=== PATIENT | male | born 1970 | race Caucasian/White ===

== ENCOUNTER 2016-11-18 05:20 | Emergency (ER) | payer SELFPAY ==
[~2016-11-18] VITALS: Ht 167.6 cm; Wt 120.2 kg
--- NOTE | 2016-11-18 05:34 | PHYS DOC ---
Past Medical History Past Medical History: No Pertinent History Past Surgical History: Tonsillectomy Alcohol Use: Rarely Drug Use: None Adult General Chief Complaint Chief Complaint: WRIST PAIN HPI HPI 46-year-old male who was changing a tire using a tire and felt a lot of pain immediately to his right wrist and forearm. He denies any trauma to the area. He states he has now difficulty extending his right fourth and fifth digit. He states he took several Motrin and applied ice to the area. He denies any numbness or tingling in the hand. He has full sensation to the hand. He rates his pain an 8/10 on the pain scale. Review of Systems Review of Systems Constitutional: Denies fever or chills [] Eyes: Denies change in visual acuity, redness, or eye pain [] HENT: Denies nasal congestion or sore throat [] Respiratory: Denies cough or shortness of breath [] Cardiovascular: No additional information not addressed in HPI [] GI: Denies abdominal pain, nausea, vomiting, bloody stools or diarrhea [] : Denies dysuria or hematuria [] Musculoskeletal: Denies back pain, has joint pain [] Integument: Denies rash or skin lesions [] Neurologic: Denies headache, focal weakness or sensory changes [] Endocrine: Denies polyuria or polydipsia [] Current Medications Current Medications Current Medications Medications (Trade) Dose Ordered Sig/[facility] Start Time Stop Time Status Last Admin Dose Admin Ketorolac Tromethamine (Toradol Im) 60 mg 1X ONCE 11/18/16 05:45 11/18/16 05:46 DC 11/18/16 05:40 60 MG Allergies Allergies Allergies Coded Allergies Type Severity Reaction Last Updated Verified No Known Drug Allergies 11/18/16 No Physical Exam Physical Exam Constitutional: Well developed, well nourished, no acute distress, non-toxic appearance. [] HENT: Normocephalic, atraumatic, bilateral external ears normal, oropharynx moist, no oral exudates, nose normal. [] Eyes: PERRLA, EOMI, conjunctiva normal, no discharge. [] Neck: Normal range of motion, no tenderness, supple, no stridor. [] Cardiovascular:Heart rate regular rhythm, no murmur [] Lungs & Thorax: Bilateral breath sounds clear to auscultation [] Abdomen: Bowel sounds normal, soft, no tenderness, no masses, no pulsatile masses. [] Skin: Warm, dry, no erythema, no rash. [] Back: No tenderness, no CVA tenderness. [] Extremities: Moderate right forearm tenderness and inability to fully extend the 4th and 5th digit, 2+ radial pulse bilaterally, there is no significant deformity or swelling, no cyanosis, no clubbing, ROM intact, no edema. [] Neurologic: Alert and oriented X 3, normal motor function, normal sensory function, no focal deficits noted. [] Psychologic: Affect normal, judgement normal, mood normal. [] Current Patient Data Vital Signs Vital Signs Date Time Temp Pulse Resp B/P Pulse Ox O2 Delivery O2 Flow Rate FiO2 11/18/16 05:27 97.8 92 18 98 Room Air 97.8 EKG EKG [] Radiology/Procedures Radiology/Procedures Three-view of the right wrist does not demonstrate any acute abnormality as interpreted by me. Course & Med Decision Making Course & Med Decision Making Pertinent Labs and Imaging studies reviewed. (See chart for details) Otherwise healthy 46-year-old male will have plain films of her wrist rule out any acute abnormality. Patient will be placed in a wrist splint and be given orthopedic follow-up for possible tendon rupture. I counseled him to continue take anti-inflammatories and use ice and avoid any weightbearing activities in the right upper extremity until he can receive follow-up in the next several days. Three-view of his right wrist did not demonstrate any acute abnormality. There is no obvious fracture or any other abnormality. I do have high suspicion that he has a tendon injury and I will give him close follow-up with orthopedics in the next several days. He'll continue his anti-inflammatory course and remain non-weight bearing on that side in the splint device provided. Dragon Disclaimer Dragon Disclaimer This electronic medical record was generated, in whole or in part, using a voice recognition dictation system. Departure Departure Impression: Primary Impression: Right wrist injury Disposition: 01 HOME, SELF-CARE Condition: STABLE Referrals: NO PCP (PCP) TRINA CAMPBELL MD Patient Instructions: Tendon Injury Additional Instructions: Please remain in your splint until you can receive follow up with orthopedic surgery in the next 2-3 days and continue to take anti-inflammatories as discussed. Return to the ER if you develop any worsening of your pain. Scripts Tramadol Hcl 50 Mg Tablet1 Tab PO PRN Q6HRS #14 TAB Prov:PARUL SZYMANSKI DO 11/18/16 Ibuprofen 800 Mg [id number] Mg PO PRN Q6HRS PRN INFLAMMATION #20 TAB Prov:PARUL SZYMANSKI DO 11/18/16 PARUL SZYMANSKI DO Nov 18, 2016 05:34
[2016-11-18 05:38] VITALS: BP 174/90
[2016-11-18] MEDS ORDERED: KETOROLAC TROMETHAMINE 60 MG/2 ML SYRINGE. IM ONE (05:45)
[2016-11-18] MEDS ORDERED: IBUP-1060 PO (06:00)
[2016-11-18] MEDS ORDERED: TRAM50TA PO (06:04)
--- NOTE | 2016-11-18 07:15 | RAD ---
Right wrist, 3 views, 11/18/2016: History: Wrist pain, injury No fracture or dislocation is identified. There is mild soft tissue swelling about the wrist. IMPRESSION: No acute bony abnormality is detected.
== END 2016-11-18 06:10 | disposition home or self-care (01) ==
LOC: ER 05:20
DX: S69.91XA Unspecified injury of right wrist, hand and finger(s), initial encounter (principal); X58.XXXA Exposure to other specified factors, initial encounter; Y93.89 Activity, other specified; Y92.89 Other specified places as the place of occurrence of the external cause; Y99.8 Other external cause status
CPT/HCPCS: 29125; 73110; 96372; 99284; J1885